=== PATIENT | female | born 1980 | race Caucasian/White ===

== ENCOUNTER 2019-02-05 21:10 | Emergency (ER) | payer MEDICAID, OTHER ==
[2019-02-05 21:10] VITALS: BMI 27.4
[2019-02-05 21:35] VITALS: RESP 18
--- NOTE | 2019-02-05 22:54 | C.PDOC ---
History Of Present Illness 39 year old female presents to the ED c/o generalized malaise. Patient also c/o tingling sensation, buzzing noise to bilateral ears associated with nausea. Patient denies fever, chills, vomit, diarrhea, weakness, numbness, SOB, palpitations. Time Seen by Provider: 02/05/19 21:56 Chief Complaint (Nursing): Medical Clearance History Per: Patient History/Exam Limitations: no limitations Onset/Duration Of Symptoms: Days Current Symptoms Are (Timing): Still Present Recent travel outside of the [place]: No Additional History Per: Patient Past Medical History Reviewed: Historical Data, Nursing Documentation, Vital Signs Vital Signs: Last Vital Signs Temp 98.1 F 02/05/19 21:24 Pulse 97 H 02/05/19 21:24 Resp 18 02/05/19 21:24 BP 122/80 02/05/19 21:24 Pulse Ox 100 02/05/19 21:24 - Medical History PMH: No Chronic Diseases Surgical History: No Surg Hx Family History: States: Unknown Family Hx - Social History Hx Tobacco Use: No Hx Alcohol Use: No Hx Substance Use: No - Immunization History Hx Tetanus Toxoid Vaccination: No Hx Influenza Vaccination: No Hx Pneumococcal Vaccination: No Review Of Systems Constitutional: Positive for: Malaise. Negative for: Fever, Chills Cardiovascular: Negative for: Chest Pain, Palpitations Respiratory: Negative for: Shortness of Breath Gastrointestinal: Positive for: Nausea. Negative for: Vomiting, Abdominal Pain Skin: Negative for: Rash Neurological: Negative for: Weakness, Numbness, Headache Physical Exam - Physical Exam Appears: Non-toxic, No Acute Distress Skin: Normal Color, Warm, Dry Head: Atraumatic Eye(s): bilateral: Normal Inspection, PERRL, EOMI, Other (no nystagmus) Ear(s): Bilateral: Normal Oral Mucosa: Moist Neck: Normal ROM, No Midline Cervical Tenderness, Supple Chest: Symmetrical Cardiovascular: Rhythm Regular Respiratory: Normal Breath Sounds, No Rales, No Rhonchi, No Wheezing Gastrointestinal/Abdominal: Soft, No Tenderness, No Guarding, No Rebound Extremity: Normal ROM, No Tenderness, No Swelling Neurological/Psych: Oriented x3, Normal Speech, Normal Cognition, Other (non focal) Gait: Steady ED Course And Treatment - Laboratory Results Urine POC: Negative O2 Sat by Pulse Oximetry: 100 (ON RA) Pulse Ox Interpretation: Normal Progress Note: Plan: - Antivert 25 mg PO. - Zofran 45 mg PO. Patient reports improvement after medications, patient walking with steable gait in no acute distress. Patient was advised to follow up with PMD for further evaluation. Reassessment Condition: Improved Disposition Counseled Patient/Family Regarding: Diagnosis, Need For Followup, Rx Given - Disposition Disposition: HOME/ ROUTINE Disposition Time: 22:51 Condition: STABLE Additional Instructions: Please follow up with PMD Take medication as directed Return to ER if worse Prescriptions: Meclizine [Meclizine*] 25 mg PO Q6 #10 tab Instructions: Vertigo (a Type of Dizziness) (DC) Forms: [employer] (Dominican) - Clinical Impression Clinical Impression: Vertigo, Medical assessment - PA / [employer] / Resident Statement MD/DO has reviewed & agrees with the documentation as recorded. - Scribe Statement The provider has reviewed the documentation as recorded by the Scribe Kian Lam All medical record entries made by the Scribe were at my direction and personally dictated by me. I have reviewed the chart and agree that the record accurately reflects my personal performance of the history, physical exam, medical decision making, and the department course for this patient. I have also personally directed, reviewed, and agree with the discharge instructions and disposition.
[2019-02-05 23:31] VITALS: BP 121/69; PULSE 79; TEMP 98.4
[2019-02-06 01:35] VITALS: O2SAT 100
== END 2019-02-05 23:31 | disposition home or self-care (01) ==
LOC: C.ER 21:10
DX: Z04.89 Encounter for examination and observation for other specified reasons (principal); R42 Dizziness and giddiness

== ENCOUNTER 2019-04-20 09:23 | Emergency (ER) | payer OTHER | END 2019-04-20 11:44 | disposition home or self-care (01) | LOC: C.ER 11:44 ==